=== PATIENT | male | born 1975 | race Caucasian/White ===

== ENCOUNTER 2016-09-29 22:22 | Emergency (ER) | payer MEDICAID ==
[~2016-09-29] VITALS: Ht 175.3 cm; Wt 81.6 kg
[2016-09-29 22:27] VITALS: BP 161/96
[2016-09-29] MEDS ORDERED: SULFACETAMIDE 10% OPHTH 15 ML BOTTLE ONE (22:42)
[2016-09-29] MEDS ORDERED: SULFACETAMIDE 10% OPHTH 15 ML BOTTLE OP ONE (23:00)
== END 2016-09-29 22:50 | disposition home or self-care (01) ==
LOC: ER 22:22
DX: H57.8 Other specified disorders of eye and adnexa (principal); I10 Essential (primary) hypertension
CPT/HCPCS: A4606; Z7610